=== PATIENT | male | born 1970 | race American Indian/Alaskan Native ===

== ENCOUNTER 2016-06-06 14:41 | Emergency (ER) | payer MEDICAID, OTHER ==
[2016-06-06 14:53] VITALS: BMI 32.3
--- NOTE | 2016-06-06 15:16 | ED PDOC ---
Arrival/HPI - General Chief Complaint: Substance Abuse Time Seen by Provider: 06/06/16 14:49 Historian: Patient, EMS - History of Present Illness Narrative History of Present Illness (Text): 06/06/16 15:15 45 year old male brought in by ambulance for heroin overdose. Patient reports using heroin 2 bags sniffed and feeling high and drowsy. He states he was about to sit down and they told him he passed out. EMS gave 2 mg Narcan intranasal, which initially did not work. After 0.4 Narcan IV, patient woke up. Patient is anxious on arrival, states he is short of breath because he is nervous. PMD: None Time/Duration: Prior to Arrival Symptom Onset: Sudden Symptom Course: Unchanged Modifying Factors (Text): Woke up with narcan Past Medical History - Provider Review Nursing Documentation Reviewed: Yes - Infectious Disease Hx of Infectious Diseases: None - Psychiatric Hx Substance Use: Yes Family/Social History - Physician Review Nursing Documentation Reviewed: Yes Family/Social History: Unknown Family HX Smoking Status: Current Some Days Smoker Hx Alcohol Use: No Hx Substance Use: Yes Allergies/Home Meds Allergies/Adverse Reactions: Allergies No Known Allergies Allergy (Verified 06/06/16 14:53) Review of Systems - Physician Review All systems were reviewed & negative as marked: Yes - Review of Systems Respiratory: SOB Gastrointestinal: absent: Abdominal Pain Neurological: absent: Dizziness Psychiatric: Anxiety. absent: Depression, Suicidal Ideation Physical Exam Vital Signs Reviewed: Yes Vital Signs Temp Pulse Resp BP Pulse Ox 06/06/16 14:41 98.6 F 80 20 142/72 97 Temperature: Afebrile Blood Pressure: Normal Pulse: Regular Respiratory Rate: Normal Appearance: Positive for: Well-Appearing, Non-Toxic, Uncomfortable Pain Distress: None Mental Status: Positive for: other (Anxious) - Systems Exam Head: Present: Atraumatic, Normocephalic Pupils: Present: PERRL Extroacular Muscles: Present: EOMI Conjunctiva: Present: Normal Mouth: Present: Moist Mucous Membranes Neck: Present: Normal Range of Motion Respiratory/Chest: Present: Clear to Auscultation, Good Air Exchange. No: Respiratory Distress, Accessory Muscle Use, Wheezes, Decreased Breath Sounds, Rales, Retracting, Rhonchi, Tachypneic, Tender to Palpation Cardiovascular: Present: Regular Rate and Rhythm, Normal S1, S2. No: Murmurs Abdomen: Present: Normal Bowel Sounds. No: Tenderness, Distention, Peritoneal Signs Back: Present: Normal Inspection Upper Extremity: Present: Normal Inspection. No: Cyanosis, Edema Lower Extremity: Present: Normal Inspection. No: Edema Neurological: Present: GCS=15, CN II-XII Intact, Speech Normal, Motor Func Grossly Intact, Normal Sensory Function Skin: Present: Warm, Normal Color, Diaphoretic. No: Rashes Psychiatric: Present: Alert, Oriented x 3, Anxious Medical Decision Making ED Course and Treatment: Impression: 45 year old male presents s/p heroin overdose Differential Diagnosis include but are not limited to: Heroin overdose Plan: -- EKG, Chest X-ray -- Potassium chloride, Zofran -- Labs -- Reassess and disposition Progress Notes: 06/06/16 16:54 Patient feels much better. No longer feels anxiety and no SOB. His Xray showed possible congestion but clinically patient lungs are clear and no suspicion for pulmonary edema. Patient was observed for over 2 hours in the ED with no trouble breathing. He denies again any chest pain or sob on reevaluation. His glucose was elevated which improved in the ED. Will have him follow up with the clinic for hyperglycemia. He was treated with potassium for low potassium. Patient is alert awake and oriented x 2. No slurred speech. No ataxia. - Lab Interpretations Lab Results: 06/06/16 14:50 06/06/16 14:50 Lab Results 06/06/16 16:00: POC Glucose (mg/dL) 214 H 06/06/16 14:50: Alcohol, Quantitative < 10 06/06/16 14:50: Salicylates < 1 L, Acetaminophen < 10.0 L 06/06/16 14:50: Sodium 136, Potassium 3.4 L, Chloride 96 L, Carbon Dioxide 26, Anion Gap 17, BUN 13, Creatinine 1.1, Est GFR ( Amer) > 60, Est GFR (Non- Af Amer) > 60, Random Glucose 243 H, Calcium 8.9, Total Bilirubin 0.7, AST 91 H , ALT 59 H, Alkaline Phosphatase 90, Total Protein 7.9, Albumin 4.3, Globulin 3.6, Albumin/Globulin Ratio 1.2 06/06/16 14:50: WBC 7.6, RBC 5.00, Hgb 14.2, Hct 40.9 L, MCV 81.8, MCH 28.4, MCHC 34.7, RDW 12.8, Plt Count 272, MPV 10.4, Gran % 40.0 L, Lymph % (Auto) 48.2 H, [place] % (Auto) 10.1 H, Eos % (Auto) 1.3 L, Baso % (Auto) 0.4, Gran # 3.05 , Lymph # 3.7 H, [place] # 0.8 H, Eos # 0.1, Baso # 0.03 - RAD Interpretation Narrative RAD Interpretations (Text): Chest X-ray Water Maintenance Supervisor : Indy Srivastava V. IMPRESSION: Cardiomegaly and mild pulmonary vascular congestion probable. No pleural effusion. No consolidation. Radiology Orders: 06/06/16 14:59 CXR [CHEST PORTABLE] [RAD] Stat Skin Washer: Radiologist - EKG Interpretation EKG Interpretation (Text): EKG shows NSR at 89 BPM with normal axis, normal intervals, no ST elevations, with no prior for comparison. Interpreted by me. Type: 12 lead EKG - Medication Orders Current Medication Orders: Discontinued Medications Ondansetron HCl (Zofran Inj) 4 mg IVP STAT STA Stop: 06/06/16 15:40 Last Admin: 06/06/16 15:40 Dose: 4 mg Ondansetron HCl (Zofran Inj) Confirm Administered Dose 4 mg .ROUTE .STK-MED ONE Stop: 06/06/16 15:42 Last Admin: 06/06/16 16:05 Dose: Potassium Chloride (K-Dur 20 Meq Er Tab) 40 meq PO STAT STA Stop: 06/06/16 15:52 Last Admin: 06/06/16 16:06 Dose: 40 meq - Scribe Statement The provider has reviewed the documentation as recorded by the Nidhi Perry Provider Scribe Attestation: All medical record entries made by the Nidhi were at my direction and personally dictated by me. I have reviewed the chart and agree that the record accurately reflects my personal performance of the history, physical exam, medical decision making, and the department course for this patient. I have also personally directed, reviewed, and agree with the discharge instructions and disposition. Disposition/Present on Arrival - Present on Arrival Any Indicators Present on Arrival: No History of DVT/PE: No History of Uncontrolled Diabetes: No Urinary Catheter: No History of Decub. Ulcer: No History Surgical Site Infection Following: None - Disposition Have Diagnosis and Disposition been Completed?: Yes Diagnosis: Overdose of heroin, Hypokalemia, Hyperglycemia Disposition: HOME/ ROUTINE Disposition Time: 16:52 Patient Plan: Discharge Patient Problems: Current Active Problems Problem Status Onset Overdose of heroin Acute Hypokalemia Acute Hyperglycemia Acute Condition: IMPROVED Discharge Instructions (ExitCare): Hypokalemia (ED), Hyperglycemia, Non- Diabetic (ED), Opioid Overdose (ED) Additional Instructions: Mr Page, thank you for letting us take care of you today. Your provider was Dr. Forrest. You were treated for Opiate Overdose, Hypokalemia, Hyperglycemia. The emergency medical care you received today was directed at your acute symptoms. If you were prescribed any medication, please fill it and take as directed. It may take several days for your symptoms to resolve. Return to the Emergency Department if your symptoms worsen, do not improve, or if you have any other problems. Please contact your doctor or call one of the physicians/clinics you have been referred to that are listed on the Patient Visit Information form that is included in your discharge packet. Bring any paperwork you were given at discharge with you along with any medications you are taking to your follow up visit. Our treatment cannot replace ongoing medical care by a primary care provider (PCP) outside of the emergency department. Please make sure to follow up with your doctor about your elevated glucose. Thank you for allowing the [facility] team to be part of your care today. If you had an X-Ray or CT scan: A Radiologist will review the ED reading if any change in treatment is needed we will contact you. If you had a blood, urine, or wound culture: It will take several days for the results, if any change in treatment is needed we will contact you. If you had an STI test: It will take 48 hours for the results. Please call after 1 week if you have not heard back. Referrals: [facility] [place] [facility] [place] Follow up with primary Forms: WORK NOTE
[2016-06-06 15:18] LABS: ADD MANUAL DIFF? NO
--- NOTE | 2016-06-06 15:30 | RAD ---
HISTORY: sob after overdose COMPARISON: No prior. FINDINGS: LUNGS: No consolidation. PLEURA: No significant pleural effusion identified, no pneumothorax apparent. CARDIOVASCULAR: Mild cardiomegalyMild pulmonary vascular congestion probable OSSEOUS STRUCTURES: No significant abnormalities. VISUALIZED UPPER ABDOMEN: Normal. OTHER FINDINGS: None. IMPRESSION: Cardiomegaly and mild pulmonary vascular congestion probable. No pleural effusion. No consolidation.
[2016-06-06 15:32] LABS: BASO # 0.03 K/mm3 (0.0-2.0); BASO % 0.4 % (0.0-3.0); EOS # 0.1 (0.0-0.7); EOS % 1.3 % (1.5-5.0); GRAN # 3.05 (1.4-6.5); HEMATOCRIT 40.9 % (42.0-52.0); LYMPH # 3.7 (1.2-3.4); LYMPH % 48.2 % (22.0-35.0); MEAN CELL VOLUME 81.8 fL (80.0-105.0); MEAN CORPUSCULAR HEMOGLOBIN 28.4 pg (25.0-35.0); MEAN CORPUSCULAR HGB CONC 34.7 g/dl (31.0-37.0); MEAN PLATELET VOLUME 10.4 fl (7.0-11.0); MONO # 0.8 (0.1-0.6); MONO % 10.1 % (1.0-6.0); PLATELET COUNT 272 10^3/uL (120.0-450.0); RED CELL DISTRIBUTION WIDTH 12.8 % (11.5-14.5); WHITE BLOOD COUNT 7.6 10^3/ul (4.5-11.0)
[2016-06-06 15:42] LABS: ALB/GLOB RATIO 1.2 (1.1-1.8); ALKALINE PHOSPHATASE 90 U/L (38-133); ALT/SGPT 59 U/L (7-56); AST/SGOT 91 U/L (15-59); BILIRUBIN,TOTAL 0.7 mg/dL (0.2-1.3); BLOOD UREA NITROGEN 13 mg/dL (7-21); CALCIUM 8.9 mg/dL (8.4-10.5); CARBON DIOXIDE 26 mmol/L (21-33); CHLORIDE 96 mmol/L (98-107); GFR AFRICAN-AMERICAN > 60; GLUCOSE,RANDOM 243 mg/dL (70-110); POTASSIUM 3.4 mmol/L (3.6-5.0); SODIUM 136 mmol/L (132-148); TOTAL PROTEIN 7.9 g/dL (5.8-8.3)
[2016-06-06] MEDS ORDERED: Potassium Chloride 20 mEq ER Tab PO STA (15:51)
[2016-06-06 17:28] VITALS: BP 157/72; PULSE 72; RESP 18; TEMP 98.7; O2SAT 98
--- NOTE | 2016-06-06 19:01 | CARD ---
APPROVED REPORT EKG Measurement Heart [id number] <Conclusion> Normal sinus rhythm Normal ECG
== END 2016-06-06 17:28 | disposition home or self-care (01) ==
LOC: ED 14:41
DX: T40.1X1A Poisoning by heroin, accidental (unintentional), initial encounter (principal); Y92.9 Unspecified place or not applicable; E87.6 Hypokalemia; R73.9 Hyperglycemia, unspecified
CPT/HCPCS: 71010; 80053; 82948; 85025; 93005; 96374; 99285; G0480; J2405